=== PATIENT | female | born 1985 | race Caucasian/White ===

== ENCOUNTER → 2016-09-14 | Outpatient (CLI) | payer BC ==
[~2016-09-14] MED LIST: PRENTAB26 PO
[2016-09-14 11:22] LABS: GTGD 50 Grams
[2016-09-14 11:38] LABS: URINE APPEARANCE CLEAR (CLEAR); URINE BILIRUBIN NEG (NEG); URINE COLOR DK YELLOW; URINE EPITHELIAL CELL AUTO >30 /lpf (0-5); URINE NITRITE NEG (NEG); URINE PH 5.5 (4.5-7.5); URINE SPECIFIC GRAVITY 1.023 (1.000-1.030); UROBILINOGEN NEG (NEG)
[2016-09-14 11:39] LABS: MANUAL MICROSCOPIC REQUIRED? NO; REVIEW REQ? NO
== END | disposition home or self-care (01) ==
LOC: C.LAB1850 08:58
PROVIDERS: ATTEND Obstetrics & Gynecology
DX: Z34.83 Encounter for supervision of other normal pregnancy, third trimester (principal)

== ENCOUNTER → 2016-11-09 | Outpatient (CLI) | payer BC | END | disposition home or self-care (01) | LOC: C.LABSPEC 17:29 | PROVIDERS: ATTEND Obstetrics & Gynecology | DX: Z34.83 Encounter for supervision of other normal pregnancy, third trimester (principal) ==

== ENCOUNTER 2016-12-03 21:03 | Inpatient (IN) | payer BC ==
[~2016-12-03] VITALS: Ht 167.6 cm; Wt 75.0 kg
[2016-12-03] MEDS ORDERED: LACTATED RINGER'S 1000ML 1,000 ML IV PRN (21:34)
[2016-12-03] MEDS ORDERED: LACTATED RINGER'S 1000ML 1,000 ML IV SCH (21:34)
[2016-12-03 21:54] LABS: HEMATOCRIT 32.6 % (37-47); MEAN CELL VOLUME 91.1 fL (80-100); MEAN CORPUSCULAR HEMOGLOBIN 32.4 pg (25-34); MEAN CORPUSCULAR HGB CONC 35.6 g/dl (32-36); MEAN PLATELET VOLUME 8.7 fL (7.4-10.4); PLATELET COUNT 149 K/uL (130-400); RED BLOOD COUNT 3.58 M/uL (4.2-5.4); WHITE BLOOD COUNT 14.71 K/uL (4.8-10.8)
[2016-12-03 22:36] VITALS: Ht 167.6 cm; Wt 75.0 kg
[2016-12-03] MEDS ORDERED: PRENTAB26 PO (22:42)
[2016-12-04] MEDS ORDERED: BUPIVACAINE 0.25% 30 ML VIAL ONE (00:04)
[2016-12-04] MEDS ORDERED: FENTANYL CITRATE INJ 50 MCG/1 ML 2 ML VIAL ONE (00:05)
[2016-12-04] MEDS ORDERED: EpHEDrine SULFATE INJ 50 MG/ML AMP ONE (00:05)
[2016-12-04] MEDS ORDERED: FENTANYL 2MCG/ML ROPIV 1.25MG/ML 100ML BAG EPI ONE (00:05)
[2016-12-04] MEDS ORDERED: LACTATED RINGER'S 1000ML 500 ML IV PRN ×2 (00:42→01:16)
[2016-12-04] MEDS ORDERED: EpHEDrine SULFATE INJ 50 MG/ML AMP IV PRN (00:45)
[2016-12-04] MEDS ORDERED: NALOXONE HCL INJ 0.4 MG/1 ML VIAL/CARP IV PRN (00:45)
[2016-12-04] MEDS ORDERED: FENTANYL 2MCG/ML ROPIV 1.25MG/ML 100ML BAG EPI PRN (00:45)
[2016-12-04] MEDS ORDERED: OXYTOCIN 30 UNITS/500ML NSS IV PRN ×2 (01:30→03:00)
[2016-12-04] MEDS ORDERED: LANOLIN OINT EXT PRN ×2 (03:00)
[2016-12-04] MEDS ORDERED: ACETAMINOPHEN/CODEINE 300/30MG TAB PO PRN ×2 (03:00)
[2016-12-04] MEDS ORDERED: SUPERCREAM 0.870 % 15GM JAR EXT PRN (03:00)
[2016-12-04] MEDS ORDERED: ACETAMINOPHEN 325 MG TAB PO PRN (03:00)
[2016-12-04] MEDS ORDERED: BENZOCAINE 20% AER SPR 82.5 GM CAN EXT PRN (03:00)
--- NOTE | 2016-12-04 03:24 | Anesthesia Procedure Note ---
Anesthesia Epidural Removal Nt Date & Time Dec 04, 2016 at 03:23 Notes Mental Status: alert / awake / arousable, participated in evaluation Nausea / Vomiting: adequately controlled Pain: adequately controlled Airway Patency, RR, SpO2: stable & adequate BP & HR: stable & adequate Hydration State: stable & adequate Neuraxial Anesthesia: was administered Anesthetic Complications: no major complications apparent, pt satisfied with anesthetic care Epidural: removed without complications, with tip intact
[2016-12-04 05:50] VITALS: BP 106/71; PULSE 97; TEMP 37.1
--- NOTE | 2016-12-04 07:29 | Progress Note ---
Subjective Dec 04, 2016. Subjective conversation w/ patient, physical exam Ambulation: ambulating normally Voiding: no voiding problems Passing Gas: Yes Diet Tolerance: Regular Diet Lochia: Moderate Feeding Type: Breast Feeding Review of Systems Constitutional: No chills, No fatigue, No fever, No problem reported, No sweats , No weakness, No weight loss Breast: No breast lump, No breast pain, No change in shape, No nipple discharge , No problem reported, No see HPI Female : + abnormal vaginal bleeding, + dysuria, + hematuria, + incontinence , + problem reported, + see HPI, + urinary frequency, + vaginal discharge Objective Vital Signs Date Time Temp Pulse Resp B/P Pulse Ox O2 Delivery O2 Flow Rate FiO2 12/04/16 05:50 37.1 97 18 106/71 Room Air 12/04/16 05:50 Room Air Physical Exam General Appearance: WELL-APPEARING, NO APPARENT DISTRESS Abdomen: non tender, soft Fundus: Firm, Non-Tender, Relation to Umbilicus (1 below U) Extremities: no calf tenderness Laboratory Results Last 24 Hours Test 12/03/16 21:47 White Blood Count 14.71 K/uL Red Blood Count 3.58 M/uL Hemoglobin 11.6 g/dL Hematocrit 32.6 % Mean Corpuscular Volume 91.1 fL Mean Corpuscular Hemoglobin 32.4 pg Mean Corpuscular Hemoglobin Concent 35.6 g/dl RDW Standard Deviation 44.0 fL RDW Coefficient of Variation 13.3 % Platelet Count 149 K/uL Mean Platelet Volume 8.7 fL Assessment and Plan Day#: 1 Continue Routine Care: stable course continue current care plan/
[2016-12-04 08:00] VITALS: BP 101/65; PULSE 95; TEMP 36.5; O2SAT 98
[2016-12-04] MEDS: DOCUSATE SODIUM 100 MG CAP PO SCH ×2 (08:05→20:02)
[2016-12-04] MEDS: PRENATAL VITAMIN TAB PO SCH (08:05)
[2016-12-04] MEDS: IBUPROFEN 600 MG TAB PO PRN ×2 (09:40→18:57)
--- NOTE | 2016-12-04 12:44 | DELIVERY SUMMARY ---
DATE OF OPERATION: 12/04/2016 The patient is a 31-year-old 2, para 1-0-0-1 white female, EDC of 12/04/2016 who presents in active labor. She received epidural analgesia. Membranes were ruptured for clear fluid. She progressed to full dilation and pushed effectively over intact perineum for delivery of a viable female . Nuchal cord x2 was reduced prior to delivering the rest of the . Mouth and nasopharynx were suctioned on the perineum. The was placed on the mother's abdomen for further attention and stimulation. There was crying and movement of all 4 limbs. The cord was clamped and cut and the placenta was expressed intact with a 3-vessel cord. First-degree perineal laceration was repaired with 3-0 chromic in the usual fashion. There were several superficial abrasions that were not bleeding and therefore not repaired. Blood loss was 500 mL. Mother and infant were doing well after delivery. I attest to the content of the Intraoperative Record and any orders documented therein. Any exceptio ns are noted below.
[2016-12-04 13:05] VITALS: BP 122/73; PULSE 81; TEMP 36.8; O2SAT 98
[2016-12-04 15:15] VITALS: BP 101/62; PULSE 83; TEMP 36.6; O2SAT 98
[2016-12-04 20:00] VITALS: BP 114/69; PULSE 93; TEMP 36.8; O2SAT 97
[2016-12-04 23:30] VITALS: BP 108/66; PULSE 92; TEMP 36.8; O2SAT 98
[2016-12-05 06:37] LABS: HEMATOCRIT 28.5 % (37-47)
[2016-12-05 07:26] VITALS: BP 94/61; PULSE 85; TEMP 36.7
[2016-12-05] MEDS: PRENATAL VITAMIN TAB PO SCH (07:40)
[2016-12-05] MEDS: DOCUSATE SODIUM 100 MG CAP PO SCH (07:40)
--- NOTE | 2016-12-05 08:41 | Progress Note ---
Subjective Dec 05, 2016. Subjective conversation w/ patient, physical exam Ambulation: ambulating normally Voiding: no voiding problems Passing Gas: Yes Diet Tolerance: Regular Diet Lochia: Moderate Feeding Type: Breast Feeding Review of Systems Constitutional: No chills, No fever Respiratory: No cough Cardiac: No chest pain Abdomen: No nausea, No vomiting Objective Vital Signs Date Time Temp Pulse Resp B/P Pulse Ox O2 Delivery O2 Flow Rate FiO2 12/05/16 07:26 36.7 85 20 94/61 12/04/16 23:30 36.8 92 16 108/66 98 Room Air 12/04/16 23:30 Room Air 12/04/16 20:00 36.8 93 16 114/69 97 Room Air 12/04/16 15:15 36.6 83 16 101/62 98 Room Air 12/04/16 15:15 98 Room Air 12/04/16 13:05 36.8 81 18 122/73 98 Room Air Physical Exam General Appearance: WELL-APPEARING, NO APPARENT DISTRESS Respiratory/Chest: no respiratory distress, no accessory muscle use Cardiovascular: no edema Abdomen: non tender, soft Fundus: Firm Extremities: no calf tenderness Laboratory Results Last 24 Hours Test 12/05/16 06:16 Hemoglobin 9.9 g/dL Hematocrit 28.5 % Assessment and Plan Day#: 1 Continue Routine Care: Desires D/C home today. Instructions reviewed.
--- NOTE | 2016-12-05 08:42 | Discharge Instructions ---
Discharge Instructions Date of Service Dec 05, 2016. Admission Reason for Admission: Check Labor Discharge Discharge Diagnosis / Problem: Vaginal delivery Discharge Goals Goal(s): Routine recovery after delivery Activity Recommendations Activity Limitations: per Instructions/Follow-up section . Instructions / Follow-Up Instructions / Follow-Up ACTIVITY RECOMMENDATIONS: * Gradual return to full activity over the next 2-3 weeks. * No lifting - nothing heavier than baby over the next 2-3 weeks. * Do not engage in vigorous exercise, sexual activity or sports until cleared by your physician. * Do not drive or operate any motorized equipment until cleared by your physician. * You may shower/bathe daily. MEDICATIONS: For discomfort or pain, you may use Acetaminophen (Tylenol), Ibuprofen (Advil), or Naproxen (Aleve) following the package directions. For constipation you may use Colace following the package directions. BREAST CARE: If you are not breast feeding: * Wear a supportive bra 24 hours a day for one to two weeks. * Avoid stimulating your breasts and nipples as much as possible during the first few weeks after delivery. * When taking a shower, have the warm water hit your back, not breasts. * When your breasts feel full, apply ice packs. Usually three to four times a day helps ease the discomfort. * Take a mild pain medication (Tylenol / Motrin) when you are uncomfortable. If breast feeding: * Use breast milk to lubricate nipples. Lansinoh cream may be used for sore nipples. You do not need to remove cream prior to breast feeding. If using a different brand of cream, check the label for directions regarding removal of cream prior to nursing. * Wear a supportive bra. * If having problems with breasts or breast feeding, call a micro[employer] ax consultant or your health care provider. EPISIOTOMY CARE: After delivery, if you have an episiotomy (stitches), the following steps will ease discomfort and aid healing. * For the first 24 hours after delivery, place ice packs next to your episiotomy to help reduce swelling. * After the first 24 hour-period, sitz baths, either portable or in the tub, are suggested. A shower with a shower arm sprayed over the episiotomy may be comforting. * Lili care should be done after each voiding and bowel movement. Squirt warm water from a plastic bottle over the perineum (region of the body between the anus and urinary opening) and pat dry. * Use Dermoplast to ease discomfort. Shake container. [place] directly over the episiotomy. Place a Tucks on a clean sanitary pad next to your episiotomy. SPECIAL CARE INSTRUCTIONS: When you are discharged from the hospital, it is important for you to follow the instructions listed below: * During the first week at home, you should be able to care for yourself and your baby. In addition, the usual light household activities are encouraged. * Limit your activities to the way you feel. Do not try to clean the house or move furniture. Be sensible. * If you actively engage in sports and have done so up until the time of your delivery, you may resume these activities as soon as you feel able. This may take up to one month or even longer. Use good judgment. * Continue to take your vitamins for at least six weeks after the of your baby. * Your diet need not be limited unless you were on a special diet before your delivery. Breast-feeding mothers need around 2500 calories per day and at least 64-80 ounces of fluid per day (8 to 10 glasses). * You should eat foods from the four major food groups. Crash diets or fad diets are to be avoided. Eating lean meats, fresh fruits and vegetables, low-fat dairy products, high fiber foods and a regular exercise program, will help you get back to your pre- weight without putting your health at risk. * Constipation is sometimes a problem after delivery. Take a mild laxative as needed. If breast feeding, Milk of Magnesia is acceptable to use. You may use a suppository or Fleets enema if no episiotomy. * A daily shower or tub bath is suggested. Be sure to thoroughly and gently dry the perineum. * A bloody vaginal discharge will usually continue until around four weeks post . A small amount of bleeding may continue for as long as six weeks. Vaginal discharge changes from the bright red bleeding after delivery to pink then brownish and finally yellowish-pink before becoming white and disappearing. * Bleeding may increase with activity. Your first period may come in 4-8 weeks. If you are breast feeding, your period may be delayed even longer. * [place] (sex) can begin whenever both you and your partner feel comfortable and do not have any form of genital infection. It is recommended that you wait at least six weeks for internal and external healing to occur. If you have questions, please talk to your health care practitioner. A condom should be used to prevent infection and . * Foreplay, gentle intercourse and lubrication is very important the first several times to prevent pain. A water-based lubricant such as K-Y jelly or Astroglide may be used. * If you have RH negative blood and your baby is RH positive, you will receive RHOGAM by injection prior to discharge. The nurse will give you a card to keep with you that has the date and place that you received RHOGAM after delivery. * During your care, you had a Rubella screen done to check for the presence of rubella antibodies in your blood. If your test was negative, you will receive a Rubella vaccine prior to discharge. This vaccine may cause a fever, soreness at the injection site and flu-like symptoms. If these symptoms persist, notify your health care practitioner. is not advised for one month after a Rubella vaccine. * Verbalizes understanding of car seat law as reviewed with patient nursing. * Car Seat hand-out given and reviewed with patient by nursing. * Shaken baby information reviewed with patient by nursing. Call you doctor if: * Heavy bleeding (saturating several pads an hour) or passing clots the size of your fist. * A fever >101 degrees F (38.3 degrees C) on two occasions four hours apart and /or chills. * Unusual pain in the pelvic or vaginal areas. * "Baby Blues" lasting longer than two weeks. If you have any questions or concerns, call your health care practitioner at . FOLLOW UP VISIT: * Please call the office at to schedule a 6 week examination. It is important you keep this appointment. It is important for you to make arrangements for either yearly or twice yearly check-ups thereafter. Current Hospital Diet Patient's current hospital diet: Regular OB Diet Discharge Diet Recommended Diet: Regular Diet Pending Studies Studies pending at discharge: no Medical Emergencies . Who to Call and When: Medical Emergencies: If at any time you feel your situation is an emergency, please call 911 immediately. . Non-Emergent Contact Non-Emergency issues call your: Primary Care Provider . . "Provider Documentation" section prepared by Eloisa Fournier. VTE Core Measure Inpt VTE Proph given/why not?: Treatment not indicated
[2016-12-05 12:25] VITALS: BP_DIAS 61; PULSE 85; TEMP 36.7
[2016-12-05] MEDS ORDERED: BISACODYL 5 MG TABEC PO SCH (20:00)
== END 2016-12-05 13:00 | disposition home or self-care (01) | DRG 775 ==
LOC: C.LD 21:03 → C.OPB 21:03 → C.LD 21:36 → C.OBG 12-04 05:33
PROVIDERS: ADMIT Obstetrics & Gynecology; ATTEND Obstetrics & Gynecology
PROC: 10E0XZZ Delivery of Products of Conception, External Approach (ICD-10-PCS; principal; 2016-12-04)
PROC: 0HQ9XZZ Repair Perineum Skin, External Approach (ICD-10-PCS; principal; 2016-12-04)
DX: O69.81X1 Labor and delivery complicated by cord around neck, without compression, fetus 1 (principal); O70.0 First degree perineal laceration during delivery; Z37.0 Single live birth; Z3A.40 40 weeks gestation of pregnancy

== ENCOUNTER 2020-12-07 05:23 | Inpatient (IN) ==
--- NOTE | 2020-12-07 06:38 | History & Physical Report ---
Date of Service December 07, 2020 Assessment & Plan (1) : 35 y/o at 41 wga presenting w/ r/o labor VSS Fetus cat 2 but reassuring, will reposition. Labor - reports ctx q3-4 min at home, spaced out when she got here. SVE slightly more than last office visit, will have pt walk after becomes reactive and recheck GBS neg, will get covid tested as she has not yet been tested History of Present Illness Chief Complaint: Ctx Primary Care Provider: NO PCP 35 y/o at 41 wga w/ [facility] 11/30 by 1st tri US due to unknown LMP presents w/ c/o ctx increasing in frequency and intensity. +FM; denies LOF. 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 - [facility] [place] wnl AMA Past [facility] Hx: G1 2013 at 39 wks, c/b above G2 2016 at 40 wks - NOT vacuum assisted as noted in chart G3 current Periods q24-25d Pap 08/2018 neg cytology, no hx abnl Denies hx STI Allergies Allergy/AdvReac Type Severity Reaction Status Date / Time No Known Allergies Allergy Verified 12/07/20 05:41 Home Medications Medication Instructions Recorded Confirmed Type prenat.vits,sena,[id number] 1 tab PO DAILY 04/21/20 12/07/20 History Patient History Medical History (Updated 12/07/20 @ 06:34 by Juana Mistry MD) Date of last menstrual period (LMP) unknown Encounter for anatomic survey Surgical History S/P wisdom tooth extraction Family History Brother Diabetes Mother Hypertension Daughter Mandibulofacial dysostosis with microcephaly Social History (Updated 04/21/20 @ 13:21 by Miranda Trujillo) Smoking Status: Never smoker Hx Alcohol Use: No Hx Substance Use: No Preferred Language: [place] Beliefs That Will Affect Care: None marital status: marital status details: Jayesh (36) [phone] Current Living Situation: Spouse Current Living Situation Comment: lives with spouse, 2 children, no pets current occupational status: employed 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 @ [employer] Other Information That Helps Us Care for You: No Feels Safe at Home: Yes Safety Concerns: Feels Safe At This Time Physical Exam Constitutional: WD/WN, vitals as above Respiratory: normal respiratory effort; no respiratory distress and no labored breathing Psychiatric: A+Ox3, euthymic affect Genitourinary: Manual OB Exam: + cervical dilation (2-3), + cervical effacement 70% and + station high OB Exam Monitor Tracing: + external FHT monitor used, + external uterine monitor used (q6-9min) and + category II (145/mod/-accel/?variables, overall reassuring) Results & Data ([facility]) Vital Signs (Past 12 Hours) Vital Signs Temp Pulse Resp BP 12/07/20 05:45 97.9 F 83 18 128/78 12/07/20 05:35 83 128/78 Laboratory Results OB Labs: Blood Type A Positive 05/01/20 Antibody Screen NEGATIVE 05/01/20 Hemoglobin 11.1 g/dL (12.0-16.0) L 09/08/20 Hematocrit 32.9 % (37-47) L 09/08/20 Mean Corpuscular Volume 91.5 fL (80-100) 05/01/20 Platelet Count 188 K/uL (130-400) 05/01/20 Rubella IgG Antibody Immune (Immune) 05/01/20 Rapid Plasma Reagin Nonreactive (Nonreactive) 05/01/20 Hepatitis B Surface Antigen Neg (Neg) 05/01/20 HIV (1&2) Ab and P24 Ag, 4th Gener Neg (Neg) 05/01/20 Glucose 1 Hour 50 gm Load 95 mg/dl (70-130) 09/08/20 OB Optional Labs: Chlamydia trachomatis RNA NOT DETECTED (NOT DETECTED) 05/01/20 Neisseria gonorrhoeae RNA NOT DETECTED (NOT DETECTED) 05/01/20 Labs Reviewed: CF/SMA negative (06/02/16) [facility] GBS neg Diagnostic Findings Posterior placenta Coding Level of Care Code None Diagnoses Z34.90
[2020-12-07] MEDS ORDERED: LACTATED RINGER'S 1,000 ML IV PRN (08:33)
[2020-12-07] MEDS ORDERED: OXYTOCIN 30 UNITS/500 ML BAG IV PRN ×2 (08:33→15:15)
--- NOTE | 2020-12-07 08:41 | Labor Progress Brief Note ---
Date of Service December 07, 2020 Subjective ctx q5 when walking, feels like they space out in bed Assessment & Plan (1) : 35 y/o at 41 wga presenting in labor VSS Fetus cat 2 but reassuring Labor - SVE showed progression, will allow to walk. Discussed can add pitocin if needs augmentation, pt amenable GBS neg, covid neg epidural PRN Physical Exam Constitutional: WD/WN, vitals as above Respiratory: normal respiratory effort; no respiratory distress and no labored breathing Psychiatric: A+Ox3, euthymic affect Genitourinary: OB Exam Abdomen: + vertex (confirmed by BSUS) and + estimated weight (7-8) Manual OB Exam: + cervical dilation 3 cm, + cervical effacement 70% and + station high OB Exam Monitor Tracing: + external FHT monitor used, + external uterine monitor used (difficult to trace, toco re adjusted) and + category II (130/mod/+accel/intermittent variables, overall reassuring) Results & Data ([facility]) Vital Signs (Past 12 Hours) Vital Signs Temp Pulse Resp BP 12/07/20 07:58 97.5 F L 80 16 121/72 12/07/20 05:45 97.9 F 83 18 128/78 12/07/20 05:35 83 128/78 Coding Level of Care Code None Diagnoses Z34.90
[2020-12-07 08:54] LABS: Hematocrit (blood only) 32.2 % (37-47); Hemoglobin 11.5 g/dL (12.0-16.0); Mean Corpuscular Hemoglobin 32.7 pg (25-34); Mean Corpuscular Hgb Conc 35.7 g/dL (32-36); Mean Corpuscular Volume 91.5 fL (80-100); Mean Platelet Volume 8.4 fL (7.4-10.4); Platelet Count 145 K/uL (130-400); RDW Coefficient of Variation 13.2 % (11.5-14.5); RDW Standard Deviation 44.3 fL (36.4-46.3); Red Blood Count 3.52 M/uL (4.2-5.4)
--- NOTE | 2020-12-07 10:45 | Labor Progress Brief Note ---
Date of Service December 07, 2020 Subjective ctx q3-4min, increasing in intensity Assessment & Plan (1) : 35 y/o at 41 wga presenting in labor VSS Fetus cat 2 but reassuring Labor - SVE continuing to progress, now s/p arom but scant fluid. Ctx immediately became much more uncomfortable, so will see. Augmentation not indicated currently GBS neg, covid neg epidural PRN Admission and Anticipated Discharge Date Admission Date: December 07, 2020 Physical Exam Constitutional: WD/WN, vitals as above Respiratory: normal respiratory effort; no respiratory distress and no labored breathing Psychiatric: A+Ox3, euthymic affect Genitourinary: Manual OB Exam: + cervical dilation 4 cm, + cervical effacement 70%, + station -2 and + amniotic fluid (AROM clear but scant fluid) OB Exam Monitor Tracing: + external FHT monitor used, + external uterine monitor used (q3-6) and + category II (130/mod/+accel/intermittent variables, overall reassuring) Results & Data ([facility]) Vital Signs (Past 12 Hours) Vital Signs Temp Pulse Resp BP 12/07/20 07:58 97.5 F L 80 16 121/72 12/07/20 05:45 97.9 F 83 18 128/78 12/07/20 05:35 83 128/78 Coding Level of Care Code None Diagnoses Z34.90
[2020-12-07] MEDS ORDERED: NALOXONE HCL 0.4 MG/1 ML VIAL/CARP IV PRN (11:08)
[2020-12-07] MEDS ORDERED: ONDANSETRON INJ 2 MG/ML 2 ML VIAL IV PRN (11:08)
[2020-12-07] MEDS ORDERED: diphenhydrAMINE 50 MG/ML VIAL IV PRN (11:08)
[2020-12-07] MEDS ORDERED: ePHEDrine sulfate 50 MG/ML AMP IV PRN (11:08)
[2020-12-07] MEDS ORDERED: NALOXONE HCL 1 MG in SODIUM CHLORIDE 0.9% 1000ML 1,000 ML IV PRN (11:08)
[2020-12-07] MEDS ORDERED: fentaNYL 2MCG/ML ROPIVACAINE 1.25MG/ML 100 ML BAG EPI PRN (11:08)
[2020-12-07] MEDS ORDERED: fentaNYL 2MCG/ML ROPIVACAINE 1.25MG/ML 100 ML BAG EPI ONE (11:10)
[2020-12-07] MEDS ORDERED: ePHEDrine sulfate 50 MG/ML AMP ONE (11:10)
[2020-12-07] MEDS ORDERED: SODIUM CHLORIDE 0.9% INJ 10 ML VIAL ONE (11:10)
[2020-12-07] MEDS ORDERED: fentaNYL citrate 100 MCG/2 ML VIAL ONE (11:10)
[2020-12-07] MEDS ORDERED: BUPIVACAINE 0.25% 30 ML VIAL ONE (11:10)
--- NOTE | 2020-12-07 11:25 | Anesthesiology Consultation ---
Date of Service December 07, 2020 Assessment & Plan (1) Encounter for pre-operative examination: Chart Review Chart Review: Acceptable Risk for Labor Epidural Consults Requested none ASA ASA2 Proposed Anesthesia Anesthesia Type: Labor Epidural Risk / Benefits Reviewed With: PT / POA / Parent / Guardian, Accepts Plan and Informed Consent Obtained History Height/Weight Height: 5 ft 6 in Weight: 79.471 kg Allergies Allergy/AdvReac Type Severity Reaction Status Date / Time No Known Allergies Allergy Verified 12/07/20 05:41 Medications Home Medications Medication Instructions Recorded Confirmed Last Taken prenat.vits,sena,wiq-olhe-juhhn 1 tab PO DAILY 04/21/20 12/07/20 Unknown Active Medications Generic Name Dose Route Start Last Admin Trade Name Freq PRN Reason Stop Dose Admin Lactated Ringer's 1,000 mls @ 125 mls/hr 12/07/20 08:33 12/07/20 11:05 Lr IV 12/09/20 08:32 999 mls/hr .Q8H PRN Administration L&D Protocol Protocol Past Medical History Medical History Date of last menstrual period (LMP) unknown Encounter for anatomic survey Exercise / Class Metabolic Activity II 4-5 Yardwork/Stairs/Walk up hill Past Family History Family History Brother Diabetes Mother Hypertension Daughter Mandibulofacial dysostosis with microcephaly Past Surgical History Surgical History S/P wisdom tooth extraction Past Anesthesia History No Hx of Anesthesia Complications and No Family Hx of Anesthesia Complications History of PONV No Hx of PONV and No Hx of Motion Sickness Social History Smoking Status: Never smoker Hx Alcohol Use: No Hx Substance Use: No Physical Exam Vital Signs Last Vital Signs Temp 98.1 F 12/07/20 10:43 Pulse 91 H 12/07/20 10:43 Resp 20 12/07/20 10:43 BP 110/72 12/07/20 10:43 ENMT Mouth: no dentition abnormality Thyromental Distance: > or= 3.5 Finger Breadths Mallampati Class: II Neck normal visual inspection Respiratory normal respiratory effort Auscultation: lungs clear to auscultation bilaterally Cardiovascular Rate/Rhythm: regular rate and regular rhythm Testing Laboratory Results 12/07/20 08:46
--- NOTE | 2020-12-07 12:53 | Labor Progress Brief Note ---
Date of Service December 07, 2020 Subjective got epidural, more comfortable with rebolus Assessment & Plan (1) : 35 y/o at 41 wga in labor VSS Fetus cat 2 but reassuring, variables improve with repositioning. Labor - Continuing to progress unaugmented. Will augment prn GBS neg, covid neg epidural in place Admission and Anticipated Discharge Date Admission Date: December 07, 2020 Physical Exam Constitutional: WD/WN, vitals as above Respiratory: normal respiratory effort; no respiratory distress and no labored breathing Psychiatric: A+Ox3, euthymic affect Genitourinary: Manual OB Exam: + cervical dilation 5 cm, + cervical effacement 70% and + station -1 OB Exam Monitor Tracing: + external FHT monitor used, + external uterine monitor used (q5-7) and + category II (135/mod/+accel/in termittent variables, overall reassuring) Results & Data ([facility]) Vital Signs (Past 12 Hours) Vital Signs Temp Pulse Resp BP Pulse Ox 12/07/20 12:46 94 H 99 12/07/20 12:45 97 H 118/70 12/07/20 12:43 97 H 108/65 12/07/20 12:41 94 H 108/62 99 12/07/20 12:39 98 H 108/64 12/07/20 12:37 101 H 112/66 12/07/20 12:36 92 H 99 12/07/20 12:35 95 H 105/65 12/07/20 12:33 86 93/56 L 12/07/20 12:31 100 H 88/60 L 99 12/07/20 12:26 92 H 98 12/07/20 12:25 86 105/60 12/07/20 12:21 87 105/61 98 12/07/20 12:16 84 99 12/07/20 12:15 82 108/61 12/07/20 12:11 82 99 12/07/20 12:10 85 104/61 12/07/20 12:06 93 H 98 12/07/20 12:05 91 H 105/65 12/07/20 12:01 98 H 104/65 98 12/07/20 11:56 105 H 98 12/07/20 11:54 93 H 99/58 L 12/07/20 11:52 94 H 93/52 L 12/07/20 11:51 98 H 99 12/07/20 11:50 96 H 102/64 12/07/20 11:48 93 H 102/59 L 12/07/20 11:46 93 H 100/59 L 97 12/07/20 11:44 86 101/56 L 12/07/20 11:42 95 H 99/55 L 12/07/20 11:41 85 98 12/07/20 11:40 94 H 108/75 12/07/20 11:38 86 111/74 12/07/20 11:36 93 H 114/76 98 12/07/20 11:34 102 H 127/80 12/07/20 11:31 95 H 99 12/07/20 11:26 93 H 100 12/07/20 10:43 98.1 F 91 H 20 110/72 12/07/20 07:58 97.5 F L 80 16 121/72 12/07/20 05:45 97.9 F 83 18 128/78 12/07/20 05:35 83 128/78 Coding Level of Care Code None Diagnoses Z34.90
--- NOTE | 2020-12-07 14:54 | Anesthesia Procedure Note ---
Date of Service December 07, 2020 Anesthesia Post Epidural Note Vital Signs Vital Signs: Temp Pulse Resp BP Pulse Ox 97.9 F 103 H 18 127/81 97 12/07/20 12:52 12/07/20 14:48 12/07/20 12:52 12/07/20 14:48 12/07/20 14:47 Pain Intensity Lower Medial Back: Pain Intensity: 6 Notes Mental Status: alert / awake / arousable and participated in evaluation Nausea / Vomiting: adequately controlled Pain: adequately controlled Airway Patency, RR, SpO2: stable & adequate BP & HR: stable & adequate Hydration State: stable & adequate Neuraxial Anesthesia: was administered and sensory block is resolving Anesthetic Complications: no major complications apparent and Pt Satisfied with anesthetic care Epidural: Removed without complications and With tip intact
--- NOTE | 2020-12-07 15:02 | Delivery Summary ---
Vaginal Delivery Summary Date of Service December 07, 2020 PREOPERATIVE DIAGNOSIS: 1. Single intrauterine at 41 weeks gestation 2. Labor 3. AMA POSTOPERATIVE DIAGNOSIS: 1. Single intrauterine at 41 weeks gestation 2. Labor 3. AMA 4. Delivered PROCEDURE: 1. Normal spontaneous vaginal delivery. SURGEON: Juana Mistry MD ANESTHESIA: Epidural. ESTIMATED BLOOD LOSS: 300 mL FLUIDS: Continuous LR. URINE OUTPUT: None. COMPLICATIONS: None. CONDITION: Stable. INDICATIONS: 35 y/o at 41 wga presented today with complaints of contractions increasing in frequency and intensity. +FM; denies LOF, VB. She was found to be 2cm on arrival and progressed to 3-4cm after 2 hours. She underwent artificial rupture of membranes and received an epidural for pain control. She then progressed to complete and desired to push. FINDINGS: A viable male with Apgars of 8 and 8 at 1 and 5 minutes respect ively. SPECIMEN: Cord gases, cord blood OPERATIVE REPORT: The patient progressed to 10 cm, 100% effaced and +2 station, pushed over intact perineum with anesthesia to deliver a viable male , Apgars as above. Head of delivered in SANYA position. Loose nuchal cord x 2 was present, one was reduced and the other delivered through. Body and shoulders were delivered without difficulty with body cord noted as well. was delivered to maternal abdomen and nursing staff. Terminal meconium was noted. Delayed cord clamping was performed for 60 seconds. Cord was clamped and cut. Cord blood and gases were obtained. Placenta delivered spontaneously intact with 3-vessel cord. IV oxytocin and fundal massage were given for excellent hemostasis. Vagina, cervix, perineum, and placenta were inspected. A second degree laceration was noted and repaired using 3-[address]-1 in the usual fashion. There was excellent hemostasis. Sponge and needle counts correct x2. No sponges were left behind. Mother and stable in immediate period. Vaginal Delivery Summary and 2nd Degree [facility] [place] Vaginal Delivery Codes: 29469 global code for the antepartum, delivery, and post- Delivery Type Details: and 2nd Degree LAC
[2020-12-07] MEDS ORDERED: bisacodyL 10 MG SUPP PR PRN (15:15)
[2020-12-07] MEDS ORDERED: BENZOCAINE 20% AER SPR 82.5 GM CAN EXT PRN (15:15)
[2020-12-07] MEDS ORDERED: HYDROCORTISONE ACETATE 25 MG SUPP PR PRN (15:15)
[2020-12-07] MEDS ORDERED: DIPHTHERIA/TETANUS/PERTUSSIS 0.5 ML SYR/VIAL IM ONE (15:15)
[2020-12-07] MEDS ORDERED: SUPERCREAM 0.870% 15 GM JAR EXT PRN (15:15)
[2020-12-07] MEDS ORDERED: ACETAMINOPHEN 325 MG TAB PO PRN (15:15)
[2020-12-07 15:23] LABS: CO2 Cord Arterial Blood 40 mmHg (39.1-73.5); HCO3 Cord Arterial Blood 22 mmol/L (19.7-28.5); Oxygen Sat Cord Arterial Blood 75.7 % (<60); PO2 Cord Arterial Blood 35 mmHg (4.1-31.7); pH Cord Arterial Blood 7.36 (7.1-7.38)
[2020-12-07 15:29] LABS: Cord Venous Blood HCO3 22 mmol/L (18.4-26.8); Cord Venous Blood PCO2 41 mmHg (30.4-57.2); Cord Venous Blood PO2 29 mmHg (14.1-43.3); Cord Venous Blood pH 7.35 (7.20-7.44); O2 Saturation Cord Venous Bld 69.2 % (<68)
[2020-12-07] MEDS: IBUPROFEN 600 MG TAB PO PRN ×2 (18:42→23:45)
[2020-12-07] MEDS: DOCUSATE SODIUM 100 MG CAP PO SCH (21:04)
--- NOTE | 2020-12-08 06:18 | Obstetrical Progress Note ---
Date of Service <Dejah Velazquez DO - Last Filed: 12/08/20 07:27> December 08, 2020 Assessment & Plan <Dejah Velazquez DO - Last Filed: 12/08/20 07:27> (1) state: PPD #1 - PNL: Rh pos, RI, GBS neg, COVID neg - Feels well today. Eating well, voiding well, ambulating well. - Pain well controlled with ibuprofen 600mg Q4H PRN - Routine care -- OOB, ambulation, diet progression as tolerated - Hgb 9.6 this AM. Will start patient on ferrous sulfate 325mg po qAM. - After discharge will have 6 week follow-up with Dr. Mistry. - Patient does desire d/c home today. Subjective <Dejah Velazquez DO - Last Filed: 12/08/20 07:27> Claudia Bryant is a 35 y/o female who is PPD #1 following spontaneous vaginal delivery at 41 weeks. She reports feeling well overall this morning. Minimal abdominal cramping and 1/10 pain well managed on analgesics. Voiding without dysuria. Tolerating meals overnight without difficulty, nausea, or vomiting. Patient has been able to ambulate some. She is passing gas. Has persistent lochia with some improvement this morning. Currently . Review of Systems Denies fever or chills. Denies shortness of breath or cough. Denies chest pain. Denies breast pain. Denies dysuria. Denies leg pain or leg swelling. Denies headache or changes in vision. Physical Exam <Dejah Velazquez DO - Last Filed: 12/08/20 07:27> General: Alert, oriented. No acute distress. Cardiac: Regular rate and rhythm. No murmurs. Respiratory: Clear to auscultation bilaterally a/p, no wheezes/rales/rhonchi. No increased work of breathing. Symmetrical chest rise. No respiratory distress. Abdomen: Soft, nontender, nondistended. Bowel sounds present. Uterus: Uterine fundus firm, palpable 2 cm below umbilicus. Lower Extremities: No lower extremity edema or swelling. No deep calf pain. Results & Data ([facility]) <Dejah Velazquez DO - Last Filed: 12/08/20 07:27> Vital Signs (Past 12 Hours) Vital Signs Temp Pulse Resp BP Pulse Ox 12/08/20 03:00 36.7 C 90 16 97/59 L 98 12/07/20 23:35 36.6 C 92 H 18 111/68 96 12/07/20 19:30 36.8 C 87 18 110/75 Laboratory Results 12/08/20 12/07/20 12/07/20 Range/Units 06:20 14:23 14:23 WBC 12.60 H (4.8-10.8) K/uL RBC 3.01 L (4.2-5.4) M/uL Hgb 9.6 L (12.0-16.0) g/dL Hct 27.7 L (37-47) % MCV 92.0 (80-100) fL MCH 31.9 (25-34) pg MCHC 34.7 (32-36) g/dL RDW Std Deviation 44.9 (36.4-46.3) fL RDW Coeff of Seymour 13.4 (11.5-14.5) % Plt Count 146 (130-400) K/uL MPV 8.5 (7.4-10.4) fL Cord ABG pH 7.36 (7.1-7.38) Cord ABG pCO2 40 (39.1-73.5) mmHg Cord ABG pO2 35 H (4.1-31.7) mmHg Cord ABG HCO3 22 (19.7-28.5) mmol/L Cord ABG Base Excess -3.0 (-9-1.8) mEq/L Cord ABG O2 Sat 75.7 H (<60) % Cord VBG pH 7.35 (7.20-7.44) Cord VBG pCO2 41 (30.4-57.2) mmHg Cord VBG pO2 29 (14.1-43.3) mmHg Cord VBG HCO3 22 (18.4-26.8) mmol/L Cord VBG Base Excess -3.0 (-7.7-1.9) mEq/L Cord VBG O2 Sat 69.2 H (<68) % Barometric Pressure 727.9 727.9 mm/Hg Blood Gas Comments KOVACS KOVACS COVID-19 Eval Order SARS-CoV-2, RNA, NAAT (NEGATIVE) 12/07/20 12/07/20 12/07/20 Range/Units 08:46 06:29 06:29 WBC 12.70 H (4.8-10.8) K/uL RBC 3.52 L (4.2-5.4) M/uL Hgb 11.5 L (12.0-16.0) g/dL Hct 32.2 L (37-47) % MCV 91.5 (80-100) fL MCH 32.7 (25-34) pg MCHC 35.7 (32-36) g/dL RDW Std Deviation 44.3 (36.4-46.3) fL RDW Coeff of Seymour 13.2 (11.5-14.5) % Plt Count 145 (130-400) K/uL MPV 8.4 (7.4-10.4) fL Cord ABG pH (7.1-7.38) Cord ABG pCO2 (39.1-73.5) mmHg Cord ABG pO2 (4.1-31.7) mmHg Cord ABG HCO3 (19.7-28.5) mmol/L Cord ABG Base Excess (-9-1.8) mEq/L Cord ABG O2 Sat (<60) % Cord VBG pH (7.20-7.44) Cord VBG pCO2 (30.4-57.2) mmHg Cord VBG pO2 (14.1-43.3) mmHg Cord VBG HCO3 (18.4-26.8) mmol/L Cord VBG Base Excess (-7.7-1.9) mEq/L Cord VBG O2 Sat (<68) % Barometric Pressure mm/Hg Blood Gas Comments COVID-19 Eval Order Covid19 [facility] SARS-CoV-2, RNA, NAAT NEGATIVE (NEGATIVE) <Juana Mistry MD - Last Filed: 12/08/20 07:38> Co-Signing Physician Notes Resident Physician Supervision Note: I interviewed and examined the patient. Discussed with Dr. Velazquez and agree with findings and plan as documented in the note. Any exceptions or clarifications are listed here: Meeting all pp milestones PP1. Desires d/c today, stable for discharge after 24 hours Documented By: Juana Mistry MD Resident Activity Tracking <Dejah Velazquez, DO - Last Filed: 12/08/20 07:27> Resident Involvement: Resident Care Provided Care Provided: OB Delivery
[2020-12-08 06:31] LABS: Hematocrit (blood only) 27.7 % (37-47); Hemoglobin 9.6 g/dL (12.0-16.0); Mean Corpuscular Hemoglobin 31.9 pg (25-34); Mean Corpuscular Hgb Conc 34.7 g/dL (32-36); Mean Platelet Volume 8.5 fL (7.4-10.4); Platelet Count 146 K/uL (130-400); RDW Coefficient of Variation 13.4 % (11.5-14.5); RDW Standard Deviation 44.9 fL (36.4-46.3); Red Blood Count 3.01 M/uL (4.2-5.4)
[2020-12-08] MEDS: DOCUSATE SODIUM 100 MG CAP PO SCH (07:27)
[2020-12-08] MEDS: IBUPROFEN 600 MG TAB PO PRN (07:27)
[2020-12-08] MEDS ORDERED: PRENATAL VITAMIN 1 TAB PO SCH (08:00)
[2020-12-08] MEDS ORDERED: FERROUS SULFATE 325 MG TAB PO SCH (09:00)
[2020-12-08] MEDS ORDERED: bisacodyL 5 MG TABEC PO SCH (20:00)
== END 2020-12-08 15:40 | disposition home or self-care (01) | DRG 807 ==
LOC: OPB 05:23 → 4S1 05:29 → 4S2 17:43